=== PATIENT | female | born 1995 | race Caucasian/White ===

== ENCOUNTER 2016-07-03 20:18 | Emergency (ER) | payer BC, MEDICAID ==
[~2016-07-03 20:18] MED LIST: ALEVE220 M1 PO; AMOXICILLIN500 M PO
[2016-07-03] MEDS ORDERED: PREDNISONE20 M1 PO (22:37)
[2016-07-04] MEDS ORDERED: EPIPEN 2-P0.3 MG/0.3 IM (18:12)
== END 2016-07-03 22:47 ==
LOC: EDMED 20:18
DX: L50.9 Urticaria, unspecified (principal)
CPT/HCPCS: J0171; J1100; J1200

== ENCOUNTER 2016-07-04 16:37 | Emergency (ER) | payer BC, MEDICAID ==
[~2016-07-04 16:37] MED LIST changes: +PREDNISONE20 M1 PO
[2016-07-04] MEDS ORDERED: EPIPEN 2-P0.3 MG/0.3 IM (18:12)
== END 2016-07-04 19:17 ==
LOC: EDMED 16:37
DX: T78.3XXA Angioneurotic edema, initial encounter (principal)
CPT/HCPCS: J0171; J7512